=== PATIENT | male | born 1950 | race Caucasian/White ===

== ENCOUNTER 2017-07-10 12:32 | Inpatient (IN) | payer MEDICARE, BC ==
[~2017-07-10] VITALS: Ht 170.2 cm; Wt 95.1 kg
[~2017-07-10 12:32] MED LIST: ALLO300T46; AMPH30CA7; DESV100T4; HYDR-3612; LORA1TAB; LOSA25TA2; OXYC-284; SIMV20TA2; ZALE10CA; ZALE5CAP
--- NOTE | 2017-07-10 12:58 | ERD ---
ER Documentation Chief Complaint Chief Complaint Possible sz HPI . This is a 67-year-old male, presenting to the ER because he was eating, appeared to be choking. His eyes rolled over for a few seconds, fell back will and hit her head on the floor. His immediately insert a spoon inside his mouth to prevent him from biting his tongue. He was incoherent for approximately 15 minutes. He never has similar symptoms previously, does not remember what happened. He denies syncope neck pain, chest pain, abdominal pain , vomiting, dysuria, diarrhea, urinary/stool incontinence. He was recently started on Lamictal and Adderall on June 24, 2017. He smokes and drinks Past medical history: History of throat cancer treated with radiation and chemotherapy 4 years ago, anxiety, hypertension, dyslipidemia, attention deficit disorder, chronic cough, hypothyroidism, depression, BPH ROS All systems reviewed and are negative except as per history of present illness. Medications Home Meds Reported Medications Lamotrigine* (Lamotrigine*) 25 Mg Tablet, 50 MG PO BID, TAB 07/10/17 Losartan Potassium* (Losartan Potassium*) 25 Mg Tablet, 25 MG PO DAILY, TAB 07/10/17 Levothyroxine Sodium* (Levothyroxine Sodium*) 112 Mcg Tablet, 112 MCG PO BEFORE BREAKFAST, #30 TAB 07/10/17 Omeprazole* (Omeprazole*) 40 Mg Capsule.dr, 40 MG PO AC BREAKFAST, #30 CAP 07/10/17 Lorazepam* (Ativan*) 2 Mg Tablet, 2 MG PO BID Y for ANXIETY, #30 TAB 07/10/17 Amphet Jxj-Fllzwq-B-Amphet (Adderall) 30 Mg Tablet, 30 MG PO DAILY, TAB 07/10/17 Desvenlafaxine Succinate (Pristiq) 100 Mg Tab.sr.24h, 100 MG PO DAILY, TAB.SA 07/10/17 Simvastatin* (Zocor*) 20 Mg Tablet, 20 MG PO QHS, #30 TAB 07/10/17 Tamsulosin Hcl* (Tamsulosin Hcl*) 0.4 Mg Cap.er.24h, 0.4 MG PO HS, CAP 07/10/17 Diclofenac Sodium* (Diclofenac Sodium*) 75 Mg Tablet.dr, 75 MG PO DAILY, #60 TAB 07/10/17 Cevimeline Hcl* (Evoxac*) 30 Mg Cap, 30 MG PO TID, CAP 07/10/17 Loratadine* (Claritin*) 10 Mg Capsule, 10 MG PO DAILY, CAP 07/10/17 Discontinued Reported Medications Zaleplon (Sonata) 5 Mg Capsule, 10 09/26/13 Lorazepam* (Lorazepam*) 1 Mg Tablet 09/26/13 Hydrocodone Bit-Acetaminophen* ([place]*) 1 Tab Tab 09/26/13 Oxycodone Hcl-Acetaminophen* (Percocet*) 1 Tab Tablet 09/26/13 Losartan Potassium* (Cozaar*) 25 Mg Tablet 09/26/13 Allopurinol* (Zyloprim*) 300 Mg Tablet 09/26/13 Zaleplon (Zaleplon) 10 Mg Capsule 09/26/13 Simvastatin (Simvastatin) 20 Mg Tablet 09/26/13 Desvenlafaxine Succinate (Pristiq) 100 Mg Tab.sr.24h 09/26/13 Amphet Jgn-Hhgiie-X-Amphet (Adderall XR) 30 Mg Cap.sr.24h 09/26/13 Allergies Allergies: Coded Allergies: No Known Allergy (Unverified , 07/10/17) PMhx/Soc History of Surgery: No Anesthesia Reaction: No Hx Neurological Disorder: No Hx Respiratory Disorders: No Hx Cardiac Disorders: No Hx Psychiatric Problems: No Hx Miscellaneous Medical Probl: No Hx Alcohol Use: No Hx Substance Use: No Hx Tobacco Use: No Physical Exam Vitals Vital Signs Date Time Temp Pulse Resp B/P Pulse Ox O2 Delivery O2 Flow Rate FiO2 07/10/17 12:39 98.3 112 18 123/75 98 Physical Exam Const: No acute distress. Head: Atraumatic. Eyes: Normal Conjunctiva. ENT: Normal External Ears, Nose and Mouth. Neck: Full range of motion. No meningismus. Resp: Clear to auscultation bilaterally. Cardio: Regular rate and rhythm. Abd: Soft, non distended, normal bowel sounds, non tender. Skin: No petechiae or rashes. Back: No midline or flank tenderness. Ext: No cyanosis, or edema. Neur: Awake and alert. No focal deficit Psych: Normal Mood and Affect. Result Diagram: 07/10/17 1315 07/10/17 1315 Results 24 hrs Laboratory Tests Test 07/10/17 13:15 07/10/17 13:40 White Blood Count 8.410^3/ul Red Blood Count 3.5710^6/ul Hemoglobin 12.2g/dl Hematocrit 34.4% Mean Corpuscular Volume 96.4fl Mean Corpuscular Hemoglobin 34.2pg Mean Corpuscular Hemoglobin Concent 35.5g/dl Red Cell Distribution Width 13.2% Platelet Count 98868^3/UL Mean Platelet Volume 8.8fl Neutrophils % 85.1% Lymphocytes % 4.4% Monocytes % 8.2% Eosinophils % 0.7% Basophils % 0.5% Nucleated Red Blood Cells % 0.0/100WBC Neutrophils # 7.110^3/ul Lymphocytes # 0.410^3/ul Monocytes # 0.710^3/ul Eosinophils # 0.110^3/ul Basophils # 0.010^3/ul Nucleated Red Blood Cells # 0.010^3/ul Prothrombin Time 12.5Sec Prothrombin Time Ratio 1.0 INR International Normalized Ratio 0.93 Activated Partial Thromboplast Time 28.4Sec Sodium Level 131mmol/L Potassium Level 4.2mmol/L Chloride Level 91mmol/L Carbon Dioxide Level 28mmol/L Anion Gap 16 Blood Urea Nitrogen 13mg/dl Creatinine 1.37mg/dl Glucose Level 113mg/dl Calcium Level 9.3mg/dl Total Bilirubin 0.2mg/dl Direct Bilirubin 0.00mg/dl Indirect Bilirubin 0.2mg/dl Aspartate Amino Transf (AST/SGOT) 29IU/L Alanine Aminotransferase (ALT/SGPT) 35IU/L Alkaline Phosphatase 77IU/L Total Protein 7.2g/dl Albumin 4.1g/dl Globulin 3.10g/dl Albumin/Globulin Ratio 1.32 Urine Opiates Screen Negative Urine Barbiturates Negative Urine Amphetamines Screen Positive Urine Benzodiazepines Screen Negative Urine Cocaine Screen Negative Urine Cannabinoids Negative Ethyl Alcohol Level 11.0mg/dl Bedside Glucose 111mg/dL Current Medications Medications (Trade) Dose Ordered Sig/Saul Route PRN Reason Start Time Stop Time Status Last Admin Dose Admin Levetiracetam (Keppra 500 Mg/ 100ml (Pmx)) 100 ml @ 400 mls/hr ONCE ONCE IVPB 07/10/17 15:00 07/10/17 15:14 DC 07/10/17 15:26 Procedures/MDM [place] [id number] Radiology Main Line: [phone] DIAGNOSTIC IMAGING REPORT Patient: DUSTIN JIMÉNEZ : 1950 Age: 67 Sex: M MR #: [id number] DOS: 07/10/17 1309 Ordering MD: ERASMO SARABIA MD Location: E/R Room/Bed: PROCEDURE: XR Chest. CLINICAL INDICATION: Altered mental status TECHNIQUE: Single AP view of the chest was obtained COMPARISON: None FINDINGS: Heart is borderline enlarged. Aortic arch calcification. Vascular prominence noted. Patchy opacities in the left mid lung. Mild blunting of the costophrenic angles. No acute osseous abnormality. RPTAT: AA IMPRESSION: Mild cardiomegaly. Possible trace effusions. Patchy opacities in the left mid lung may reflect atelectasis or pneumonia. Physician Bipin Date Time Electronically viewed and signed by Kuldip Ontiveros Physician on 07/10/2017 14 :56 ME/ CC: ERASMO SARABIA MD [place] [id number] Radiology Main Line: [phone] DIAGNOSTIC IMAGING REPORT Patient: DUSTIN JIMÉNEZ : 1950 Age: 67 Sex: M MR #: [id number] DOS: 07/10/17 1309 Ordering MD: ERASMO SARABIA MD Location: E/R Room/Bed: PROCEDURE: CT Brain without contrast. CLINICAL INDICATION: Seizure TECHNIQUE: A CT of the brain was performed on a multidetector CT scanner utilizing axial sections from the skull base through the vertex without contrast. Images were reviewed on a high-resolution PACS workstation. Exam CTDI = 44.63 mGy and the DLP = 720.23 mGy-cm. DICOM images are available. One or more of the following dose reduction techniques were used: Automated exposure control Adjustment of the mA and/or kV according to patient size. Use of iterative reconstruction technique. COMPARISON: CT head 09/26/2013 FINDINGS: Mild diffuse cerebral and cerebellar atrophy is present. There is proportionate dilatation of the ventricular system and sulci in a symmetric fashion. There is prominence of the extraaxial spaces secondary to atrophy. There is no evidence of intracranial hemorrhage, mass effect or midline shift. No abnormal intra-axial or extra-axial fluid collections are seen. The density of the brain is normal and the quintero/white matter differentiation is well preserved. Mild patchy diffuse deep white matter microangiopathic ischemic change is seen. The osseous structures are unremarkable. Paranasal sinuses are clear. Vascular calcifications are identified. IMPRESSION: 1. No intracranial hemorrhage, mass effect or midline shift. 2. Mild generalized atrophy. Mild microangiopathic ischemic change. 3. Intracranial atherosclerosis. RPTAT: HHO .Ace White MD, MD Date Time Electronically viewed and signed by .Ace White MD, on 07/10/2017 14:58 .O/ CC: ERASMO SARABIA MD MEDICAL MAKING DECISION: The patient is a 67-year-old male, presenting with acute onset seizure, questionable syncope. He was treated empirically with Keppra 500 mg IV to prevent recurrent seizure. The differential diagnoses considered include but are not limited to bradyarrhythmia, tachyarrhythmias, aortic outflow obstruction, neurogenic including subarachnoid hemorrhage, orthostatic hypotension and all of its causes , hypoglycemia, dysautonomia, medications. Departure Diagnosis: Primary Impression: New onset seizure Additional Impressions: Renal insufficiency Anemia Condition: Stable Comments I discussed the findings with the patient. I discussed the patient with the on- call hospitalist Dr. Sanchez at 3:20 PM who was made aware of the lab, the treatment , the patient condition. The patient is admitted to laboratory for 24 hour observation Disclaimer: Inadvertent spelling and grammatical errors are likely due to EHR/ dictation software use and do not reflect on the overall quality of patient care. Also, please note that the electronic time recorded on this note does not necessarily reflect the actual time of the patient encounter. ERASMO SARABIA MD Jul 10, 2017 12:58
[2017-07-10 13:42] LABS: ABNORMAL IP MESSAGE 1; BASOPHILS % 0.5 % (0.0-2.0); EOSINOPHILS # 0.1 10^3/ul (0.0-0.5); EOSINOPHILS % 0.7 % (0.0-7.0); HEMATOCRIT 34.4 % (42.0-52.0); HEMOGLOBIN 12.2 g/dl (14.0-18.0); LYMPHOCYTES # 0.4 10^3/ul (0.8-2.9); LYMPHOCYTES % 4.4 % (15.0-51.0); MEAN CORPUSCULAR HEMOGLOBIN 34.2 pg (29.0-33.0); MEAN CORPUSCULAR HGB CONC 35.5 g/dl (32.0-37.0); MEAN CORPUSCULAR VOLUME 96.4 fl (82.0-101.0); MEAN PLATELET VOLUME 8.8 fl (7.4-10.4); MONOCYTE # 0.7 10^3/ul (0.3-0.9); MONOCYTES % 8.2 % (0.0-11.0); NEUTROPHIL # 7.1 10^3/ul (1.6-7.5); NEUTROPHILS % 85.1 % (39.0-77.0); PLATELET COUNT 210 10^3/UL (140-415); POSITIVE DIFF @See below; RED BLOOD COUNT 3.57 10^6/ul (4.70-6.10); RED CELL DISTRIBUTION WIDTH 13.2 % (11.5-14.5); WHITE BLOOD COUNT 8.4 10^3/ul (4.8-10.8)
[2017-07-10 14:03] LABS: ALBUMIN 4.1 g/dl (3.3-4.9); ALBUMIN/GLOBULIN RATIO 1.32; BILIRUBIN,INDIRECT 0.2 mg/dl (0-1.1); BILIRUBIN,TOTAL 0.2 mg/dl (0.2-1.3); CALCIUM 9.3 mg/dl (8.4-10.2); CREATININE 1.37 mg/dl (0.61-1.24); POTASSIUM 4.2 mmol/L (3.5-5.1); TOTAL PROTEIN 7.2 g/dl (6.1-8.1)
[2017-07-10 14:04] LABS: INR 0.93; PROTIME 12.5 Sec (12.2-14.2)
[2017-07-10 14:05] LABS: PARTIAL THROMBOPLASTIN TIME 28.4 Sec (25.0-35.0)
[2017-07-10 14:08] LABS: BARBITURATES Negative (NEGATIVE); BENZODIAZEPINES Negative (NEGATIVE); CANNABINOIDS Negative (NEGATIVE)
[2017-07-10 14:09] LABS: COCAINE Negative (NEGATIVE)
[2017-07-10 14:21] LABS: OPIATES Negative (NEGATIVE)
--- NOTE | 2017-07-10 14:56 | RADRPT ---
PROCEDURE: XR Chest. CLINICAL INDICATION: Altered mental status TECHNIQUE: Single AP view of the chest was obtained COMPARISON: None FINDINGS: Heart is borderline enlarged. Aortic arch calcification. Vascular prominence noted. Patchy opacities in the left mid lung. Mild blunting of the costophrenic angles. No acute osseous abnormality. RPTAT: AA IMPRESSION: Mild cardiomegaly. Possible trace effusions. Patchy opacities in the left mid lung may reflect atelectasis or pneumonia. Kuldip Ontiveros Physician Date Time Electronically viewed and signed by Kuldip Ontiveros Physician on 07/10/2017 14:56 [place]/
--- NOTE | 2017-07-10 14:59 | RADRPT ---
PROCEDURE: CT Brain without contrast. CLINICAL INDICATION: Seizure TECHNIQUE: A CT of the brain was performed on a multidetector CT scanner utilizing axial sections from the skull base through the vertex without contrast. Images were reviewed on a high-resolution Sistemic workstation. Exam CTDI = 44.63 mGy and the DLP = 720.23 mGy-cm. DICOM images are available. One or more of the following dose reduction techniques were used: Automated exposure control Adjustment of the mA and/or kV according to patient size. Use of iterative reconstruction technique. COMPARISON: CT head 09/26/2013 FINDINGS: Mild diffuse cerebral and cerebellar atrophy is present. There is proportionate dilatation of the v entricular system and sulci in a symmetric fashion. There is prominence of the extraaxial spaces sec ondary to atrophy. There is no evidence of intracranial hemorrhage, mass effect or midline shift. N o abnormal intra-axial or extra-axial fluid collections are seen. The density of the brain is denis l and the quintero/white matter differentiation is well preserved. Mild patchy diffuse deep white matte r microangiopathic ischemic change is seen. The osseous structures are unremarkable. Paranasal s inuses are clear. Vascular calcifications are identified. IMPRESSION: 1. No intracranial hemorrhage, mass effect or midline shift. 2. Mild generalized atrophy. Mild microangiopathic ischemic change. 3. Intracranial atherosclerosis. RPTAT: HHO .Ace White MD, MD Date Time Electronically viewed and signed by .Ace White MD, on 07/10/2017 14:58 .O/
[2017-07-10] MEDS ORDERED: LEVETIRACETAM 500 MG (PMX) 100 ML IVPB ONE (15:00)
[2017-07-10 15:30] VITALS: TEMP 98.3
[2017-07-10] MEDS ORDERED: LORA10CA PO (15:33)
[2017-07-10] MEDS ORDERED: CEVI30CA8 PO (15:33)
[2017-07-10] MEDS ORDERED: TAMS0.4C2 PO (15:34)
[2017-07-10] MEDS ORDERED: DICL75TA2 PO (15:34)
[2017-07-10] MEDS ORDERED: SIMV20TA PO (15:34)
[2017-07-10] MEDS ORDERED: DESV100T4 PO (15:35)
[2017-07-10] MEDS ORDERED: ADDE30 PO (15:35)
[2017-07-10] MEDS ORDERED: LORA-444 PO (15:36)
[2017-07-10] MEDS ORDERED: LEVO112T57 PO (15:37)
[2017-07-10] MEDS ORDERED: OMEP40CA6 PO (15:37)
[2017-07-10] MEDS ORDERED: LOSA25TA5 PO (15:38)
[2017-07-10] MEDS ORDERED: LAMO25TA PO (15:39)
[2017-07-10 16:10] VITALS: BP 130/80; PULSE 107; RESP 18; Ht 170.2 cm; Wt 95.1 kg
[2017-07-10 16:25] VITALS: PULSE 107
[2017-07-10] MEDS ORDERED: LORAZEPAM 0.5 MG TAB PO PRN ×2 (17:00→18:00)
[2017-07-10] MEDS ORDERED: morphine 2 MG INJ IV PRN (17:00)
[2017-07-10] MEDS ORDERED: NACL 0.9% 3 ML SYG IV SCH (17:00)
[2017-07-10] MEDS ORDERED: ONDANSETRON 4 MG INJ IV PRN (17:00)
[2017-07-10] MEDS ORDERED: BISACODYL (EC) 5 MG TAB PO PRN (17:00)
[2017-07-10] MEDS ORDERED: ACETAMINOPHEN 325 MG TAB PO PRN (17:00)
[2017-07-10] MEDS ORDERED: HYDROCODONE/APAP (5/325) TAB PO PRN (17:00)
--- NOTE | 2017-07-10 17:16 | HP ---
Date/Time of Note Date/Time of Note DATE: 07/10/17 TIME: 17:10 Assessment/Plan VTE Prophylaxis VTE Prophylaxis Intervention: SCD's Lines/Catheters IV [facility] [place] [facility] Assessment/Plan Chief Complaint/Hosp Course o: Physical exam General: Patient is laying in bed and answers questions appropriately Mentation: Patient is alert and oriented 4, Head: Normocephalic atraumatic Eyes: EOMI, pupils reactive to light Neck: Supple, nontender, midline Respiratory: Clear to auscultation bilaterally Cardiovascular: regular rate, no obvious murmurs Gastrointestinal: non-tender to palpation, bowel sounds heard. Neurological: Moves all extremities spontaneously Skin: No new skin lesions Patient is a 67-year-old male with past medical history of hypertension dyslipidemia and throat carcinoma in remission who presents to [facility] for episode of syncope versus questionable seizure Assessment and plan Syncopal episode -Questionable seizure versus cough induced vasovagal event -Patient on lamotrigine, patient states that his psychiatrist put him on for mood disorder which is possible -Questionable seizure due to patient's daily 1 bottle of wine drinking habit, as needed Ativan as needed, seizure precautions -EEG, echocardiogram, MRI ordered neurology consultation pending -CT noted Acute kidney injury versus CKD -Very mild, still within safe ranges -Hydrate and recheck in the morning Anemia -Mild, monitor Electrolyte abnormality -Very mild, monitor Hypertension -Continue home meds Dyslipidemia -Continue meds Problems: HPI/ROS Admit Date/Time Admit Date/Time Jul 10, 2017 at 15:24 Hx of Present Illness Patient is a 67-year-old male with a past medical history significant for throat cancer in remission, hypertension, dysrhythmia, allergies, attention deficit disorder who presents to [facility] for questionable seizure or syncopal event. Patient was eating breakfast with his who witnessed the entire event. Per patient's patient was coughing violently and then his eyes rolled back and that he had a syncopal episode to the floor, the patient was aroused by his and did not seem to have a significant postictal period. Patient states that he has no history of epilepsy and follows up with his regular doctor on a normal basis. Currently patient has no acute complaints and denies chest pain, nausea, vomiting, dizziness, weakness. PMH: Throat carcinoma in remission, hypertension, dyslipidemia, allergies, depression, ADHD, GERD, Social: Daily alcohol drinker, denies smoking Meds: Please see med rec PMH/Family/Social Social History Smoking Status: Never smoker Exam/Review of Systems Vital Signs Vitals Vital Signs Date Time Temp Pulse Resp B/P Pulse Ox O2 Delivery O2 Flow Rate FiO2 07/10/17 16:25 107 07/10/17 15:30 98.3 20 130/88 98 Room Air Labs Result Diagram: 07/10/17 1315 07/10/17 1315 Medications Medications Current Medications Sodium Chloride (1/2 NS) 1,000 ml @ 70 mls/hr [id number] IV ; Start 07/10/17 at 17:00 Ondansetron HCl (Zofran Inj) 4 mg Q6H PRN IV NAUSEA AND/OR VOMITING; Start at 17:00 Acetaminophen (Tylenol Tab) 650 mg Q6H PRN PO PAIN LEVEL 1-3 OR FEVER; Start 07/10/17 at 17:00 Acetaminophen/ Hydrocodone Bitart ([place] (5/325)) 1 tab Q6H PRN PO PAIN LEVEL 4 -6; Start 07/10/17 at 17:00 Morphine Sulfate (morphine) 2 mg Q4H PRN IV PAIN LEVEL 7-10; Start 07/10/17 at 17:00 Bisacodyl (Dulcolax) 5 mg DAILY PRN PO CONSTIPATION; Start 07/10/17 at 17:00 Cevimeline HCl (Evoxac) 30 mg TID PO ; Start 07/10/17 at 21:00; Status UNV Loratadine (Claritin) 10 mg DAILY PO ; Start 07/10/17 at 17:00 Losartan Potassium (Cozaar) 25 mg DAILY PO ; Start 07/11/17 at 09:00 Tamsulosin HCl (Flomax) 0.4 mg HS PO ; Start 07/10/17 at 21:00 Lamotrigine (Lamictal) 50 mg BID PO ; Start 07/10/17 at 21:00; Status UNV Lorazepam (Ativan) 1 mg Q6 PRN PO ANXIETY; Start 07/10/17 at 18:00; Status UNV HERBERT PALM Jul 10, 2017 17:16
[2017-07-10] MEDS: SOD CHLORIDE 0.45% 1,000 ML IV SCH (17:26)
[2017-07-10] MEDS: LORATADINE 10 MG TAB PO SCH (17:26)
[2017-07-10] MEDS ORDERED: LORAZEPAM 2 MG INJ IV PRN (17:30)
[2017-07-10] MEDS ORDERED: LABETALOL HCL 20MG INJ IV PRN (17:30)
[2017-07-10 20:00] VITALS: BP 143/66; RESP 21
[2017-07-10 20:05] VITALS: PULSE 101
[2017-07-10] MEDS ORDERED: CEVIMELINE 30 MG CAP PO SCH (21:00)
[2017-07-10] MEDS: LAMOTRIGINE 25 MG TAB PO SCH (22:25)
[2017-07-10] MEDS: TAMSULOSIN (SR) 0.4 MG CAP PO SCH (22:25)
[2017-07-11] VITALS (12 sets, daily range): BP systolic 109–129; BP diastolic 64–84; PULSE 86–100; RESP 19–21
[2017-07-11 06:23] LABS: ABNORMAL IP MESSAGE 1; BASOPHIL # 0.1 10^3/ul (0.0-0.1); EOSINOPHILS # 0.1 10^3/ul (0.0-0.5); HEMATOCRIT 33.3 % (42.0-52.0); HEMOGLOBIN 11.5 g/dl (14.0-18.0); LYMPHOCYTES # 0.5 10^3/ul (0.8-2.9); LYMPHOCYTES % 10.9 % (15.0-51.0); MEAN CORPUSCULAR HEMOGLOBIN 33.5 pg (29.0-33.0); MEAN CORPUSCULAR HGB CONC 34.5 g/dl (32.0-37.0); MEAN CORPUSCULAR VOLUME 97.1 fl (82.0-101.0); MEAN PLATELET VOLUME 9.2 fl (7.4-10.4); MONOCYTE # 0.6 10^3/ul (0.3-0.9); MONOCYTES % 12.7 % (0.0-11.0); NEUTROPHIL # 3.5 10^3/ul (1.6-7.5); NEUTROPHILS % 71.8 % (39.0-77.0); PLATELET COUNT 227 10^3/UL (140-415); POSITIVE DIFF @See below; RED BLOOD COUNT 3.43 10^6/ul (4.70-6.10); RED CELL DISTRIBUTION WIDTH 13.2 % (11.5-14.5); WHITE BLOOD COUNT 4.9 10^3/ul (4.8-10.8)
[2017-07-11 07:04] LABS: ALBUMIN 3.6 g/dl (3.3-4.9); ALBUMIN/GLOBULIN RATIO 1.16; BILIRUBIN,INDIRECT 0.4 mg/dl (0-1.1); BILIRUBIN,TOTAL 0.4 mg/dl (0.2-1.3); CALCIUM 9.7 mg/dl (8.4-10.2); CHOL/HDL RATIO 1.9 RATIO; CREATININE 1.42 mg/dl (0.61-1.24); MAGNESIUM 1.8 mg/dl (1.7-2.5); POTASSIUM 4.4 mmol/L (3.5-5.1); TOTAL PROTEIN 6.7 g/dl (6.1-8.1)
[2017-07-11] MEDS: SOD CHLORIDE 0.45% 1,000 ML IV SCH ×2 (07:04→21:07)
[2017-07-11] MEDS: LEVOTHYROXINE 112 MCG TAB PO SCH (07:04)
[2017-07-11 07:33] LABS: THYROID STIMULATING HORMONE 8.45 MIU/L (0.465-4.680)
--- NOTE | 2017-07-11 09:09 | RADRPT ---
PROCEDURE: MR Brain without contrast. CLINICAL INDICATION: See a this morning. TECHNIQUE: An MRI of the brain was performed on a 1.5 tadeo scanner utilizing the following sequen jamila: Sagittal T1 weighted, axial T2 weighted, axial FLAIR, coronal GRE, and axial diffusion weighted with ADC mapping. COMPARISON: CT brain 07/10/2017 and 09/26/2013 FINDINGS: No evidence of restricted diffusion to suggest acute or early subacute ischemic infarction. There i s no evidence of intracranial hemorrhage, mass effect, or midline shift. No extra-axial fluid collec tions are seen. No hypointense signal abnormalities are seen on the GRE images to suggest the presence of blood degr adation products. Mesial temporal lobes and the temporal formations are grossly symmetric and normal appearance. No evidence of cortical dysplasia or gliosis. Scattered nonspecific FLAIR/T2 signal hyp erintensity foci in the subcortical and periventricular white matter compatible with sequelae of mil d to moderate chronic microvascular ischemic disease. There is preservation of quintero white differentiation. No structural abnormality. Mild to moderate pr ominence of the ventricles and subarachnoid spaces compatible with generalized cerebral volume loss. The posterior fossa contents, brainstem, seventh - eighth cranial nerve complexes, pituitary axis, o rbits, paranasal sinuses, and mastoid air cells are unremarkable. Normal flow voids are visible in the proximal intracranial arteries and dural sinuses, indicating pa tency. IMPRESSION: 1. No acute or early subacute ischemic infarction or intracranial hemorrhage. 2. Moderate chronic microvascular ischemic disease and generalized cerebral volume loss. 3. No structural abnormality or temporal lobe asymmetry. RPTAT:AAJJ Physician Arlette Date Time Electronically viewed and signed by Physician Arlette on 07/11/2017 09:09 [place]/
[2017-07-11] MEDS: LAMOTRIGINE 25 MG TAB PO SCH ×2 (09:15→21:07)
[2017-07-11] MEDS: LORATADINE 10 MG TAB PO SCH (09:15)
[2017-07-11] MEDS: LOSARTAN 25 MG TAB PO SCH (09:16)
--- NOTE | 2017-07-11 11:29 | PN ---
Date/Time of Note Date/Time of Note DATE: 07/11/17 TIME: Assessment/Plan VTE Prophylaxis VTE Prophylaxis Intervention: ambulation, SCD's Lines/Catheters IV Catheter Type (from Nrs): Peripheral IV Assessment/Plan Chief Complaint/Hosp Course s: 07.11 patient has dry mouth, could not bring home med as we do not have his medication for his salivary glands, no seizure/acute issues o: Physical exam General: Patient is laying in bed and answers questions appropriately Mentation: Patient is alert and oriented 4, Head: Normocephalic atraumatic Eyes: EOMI, pupils reactive to light Neck: Supple, nontender, midline Respiratory: Clear to auscultation bilaterally Cardiovascular: regular rate, no obvious murmurs Gastrointestinal: non-tender to palpation, bowel sounds heard. Neurological: Moves all extremities spontaneously Skin: No new skin lesions Patient is a 67-year-old male with past medical history of hypertension dyslipidemia and throat carcinoma in remission who presents to [facility] for episode of syncope versus questionable seizure Assessment and plan Syncopal episode -Questionable seizure versus cough induced vasovagal event -Patient on lamotrigine, patient states that his psychiatrist put him on for mood disorder which is possible -Questionable seizure due to patient's daily 1 bottle of wine drinking habit, as needed Ativan as needed, seizure precautions -EEG, echocardiogram, neurology consultation pending, Dr. Randle -MRI noted, no acute issues -CT noted, no acute issues Acute kidney injury versus CKD -Very mild, still within safe ranges -worsened slightly since yesterday -US renal ordered as well as urine studies -Hydrate and recheck in the morning Anemia -Mild, monitor Electrolyte abnormality -Very mild, monitor Hypertension -Continue home meds Dyslipidemia -Continue meds DISPO -if Cr stable tomorrow, patient likely has a minor element of CKD and can follow up with his PCP -pending neurology recs Problems: Exam/Review of Systems Vital Signs Vitals Vital Signs Date Time Temp Pulse Resp B/P Pulse Ox O2 Delivery O2 Flow Rate FiO2 07/11/17 08:10 98.5 85 20 124/76 95 07/10/17 16:10 Room Air Intake and Output 07/10/17 07/10/17 07/11/17 14:59 22:59 06:59 Intake Total 500 ml 1390 ml Balance 500 ml 1390 ml Results Result Diagram: 07/11/17 0529 07/11/17 0529 Results 24 hrs Laboratory Tests Test 07/10/17 13:15 07/10/17 13:40 07/10/17 17:40 07/11/17 05:29 White Blood Count 8.4 4.9 # Red Blood Count 3.57 L 3.43 L Hemoglobin 12.2 L 11.5 L Hematocrit 34.4 L 33.3 L Mean Corpuscular Volume 96.4 97.1 Mean Corpuscular Hemoglobin 34.2 H 33.5 H Mean Corpuscular Hemoglobin Concent 35.5 34.5 Red Cell Distribution Width 13.2 13.2 Platelet Count 210 227 Mean Platelet Volume 8.8 9.2 Neutrophils % 85.1 H 71.8 Lymphocytes % 4.4 L 10.9 L Monocytes % 8.2 12.7 H Eosinophils % 0.7 2.0 Basophils % 0.5 1.0 Nucleated Red Blood Cells % 0.0 0.0 Neutrophils # 7.1 3.5 Lymphocytes # 0.4 L 0.5 L Monocytes # 0.7 0.6 Eosinophils # 0.1 0.1 Basophils # 0.0 0.1 Nucleated Red Blood Cells # 0.0 0.0 Prothrombin Time 12.5 Prothrombin Time Ratio 1.0 INR International Normalized Ratio 0.93 Activated Partial Thromboplast Time 28.4 Sodium Level 131 L 138 Potassium Level 4.2 4.4 Chloride Level 91 L 96 L Carbon Dioxide Level 28 33 H Anion Gap 16 13 Blood Urea Nitrogen 13 14 Creatinine 1.37 H 1.42 H Glucose Level 113 96 Calcium Level 9.3 9.7 Total Bilirubin 0.2 0.4 Direct Bilirubin 0.00 0.00 Indirect Bilirubin 0.2 0.4 Aspartate Amino Transf (AST/SGOT) 29 28 Alanine Aminotransferase (ALT/SGPT) 35 37 Alkaline Phosphatase 77 73 Total Protein 7.2 6.7 Albumin 4.1 3.6 Globulin 3.10 3.10 Albumin/Globulin Ratio 1.32 1.16 Urine Opiates Screen Negative Urine Barbiturates Negative Urine Amphetamines Screen Positive Urine Benzodiazepines Screen Negative Urine Cocaine Screen Negative Urine Cannabinoids Negative Ethyl Alcohol Level 11.0 Bedside Glucose 111 Creatine Kinase 103 Magnesium Level 1.8 Triglycerides Level 58 Cholesterol Level 149 LDL Cholesterol, Calculated 62 HDL Cholesterol 75 Cholesterol/HDL Ratio 1.9 Thyroid Stimulating Hormone (TSH) 8.450 H Free Thyroxine 1.19 Medications Medications Current Medications Sodium Chloride (1/2 NS) 1,000 ml @ 70 mls/hr [id number] IV Last administered on 07/10/17 17:26; Admin Dose 70 MLS/HR; Start 07/10/17 at 17:00 Ondansetron HCl (Zofran Inj) 4 mg Q6H PRN IV NAUSEA AND/OR VOMITING; Start at 17:00 Acetaminophen (Tylenol Tab) 650 mg Q6H PRN PO PAIN LEVEL 1-3 OR FEVER; Start 07/10/17 at 17:00 Acetaminophen/ Hydrocodone Bitart ([place] (5/325)) 1 tab Q6H PRN PO PAIN LEVEL 4 -6; Start 07/10/17 at 17:00 Morphine Sulfate (morphine) 2 mg Q4H PRN IV PAIN LEVEL 7-10; Start 07/10/17 at 17:00 Bisacodyl (Dulcolax) 5 mg DAILY PRN PO CONSTIPATION; Start 07/10/17 at 17:00 Cevimeline HCl (Evoxac) 30 mg TID PO ; Start 07/10/17 at 21:00; Status UNV Loratadine (Claritin) 10 mg DAILY PO Last administered on 07/11/17 09:15; Admin Dose 10 MG; Start 07/10/17 at 17:00 Losartan Potassium (Cozaar) 25 mg DAILY PO Last administered on 07/11/17 09: 16; Admin Dose 25 MG; Start 07/11/17 at 09:00 Tamsulosin HCl (Flomax) 0.4 mg HS PO Last administered on 07/10/17 22:25; Admin Dose 0.4 MG; Start 07/10/17 at 21:00 Lamotrigine (Lamictal) 50 mg BID PO Last administered on 07/11/17 09:15; Admin Dose 50 MG; Start 07/10/17 at 21:00 Lorazepam (Ativan) 1 mg Q6H PRN PO ANXIETY Last administered on 07/10/17 22: 29; Admin Dose 1 MG; Start 07/10/17 at 18:00 Lorazepam (Ativan) 2 mg Q10MIN PRN IV seizure; Start 07/10/17 at 17:30 Labetalol HCl (Labetalol) 10 mg Q4 PRN IV sbp >160; Start 07/10/17 at 17:30 HERBERT PALM Jul 11, 2017 11:29
--- NOTE | 2017-07-11 11:31 | RADRPT ---
PROCEDURE: XR Chest PA and Lateral CLINICAL INDICATION: Pneumonia TECHNIQUE: PA and Lateral views of the chest were obtained. COMPARISON: 07/10/2017 FINDINGS: Cardiovascular: The cardiovascular silhouette appears unremarkable except for atherosclerotic change involving the aorta. Lung Levin: A poor inspiratory effort compresses lung parenchyma and discoid atelectasis has develo ped within the left lower lung zone and at the right costophrenic angle. No alveolar infiltrate is e vident. Pleural Spaces: No pneumothorax is identified and no effusion is evident. Osseous Structures: Moderate diffuse anterior spurring is seen to the thoracic spine. Soft Tissues: The soft tissues appear unremarkable. IMPRESSION: 1. Atherosclerotic aorta 2. Suboptimal inspiration compresses lung parenchyma with discoid atelectasis seen at the left lowe r lung zone and the right costophrenic angle region. 3. Degenerative spine changes. Physician Sana Date Time Electronically viewed and signed by Physician Sana on 07/11/2017 11:31 /
--- NOTE | 2017-07-11 12:08 | RADRPT ---
PROCEDURE: Renal US. CLINICAL INDICATION: Acute kidney injury. TECHNIQUE: Multiple sonographic images of the kidneys and urinary bladder were obtained. The imag es were reviewed on a PACS workstation. COMPARISON: No prior studies are available for comparison. FINDINGS: The right kidney measures 10.0 x 5.5 x 5.8 cm. The left kidney measures 8.6 x 4.2 x 4.1 cm. There is no renal mass. There is no hydronephrosis. There is no renal calculus. Renal parenchymal thickness is normal bilaterally. Echogenicity is normal bilaterally. The perirenal regions are normal with no fluid collection or mass. The urinary bladder is unremarkable. IMPRESSION: 1. Unremarkable renal ultrasound. RPTAT: QQ .Fabian Shipman MD, Date Time Electronically viewed and signed by .Fabian Shipman MD, on 07/11/2017 12:07 .R/
--- NOTE | 2017-07-11 14:34 | CONS ---
Date/Time of Note Date/Time of Note DATE: 07/11/17 TIME: 14:27 Assessment/Plan Assessment/Plan Chief Complaint/Hosp Course Seizure versus syncope Problems: Additional Assessment/Plan Patient is a 67-year-old male with a past medical history significant for throat cancer in remission, hypertension, dysrhythmia, allergies, attention deficit disorder who was brought into [facility] for an episode of possible syncope or seizure.. Patient was eating breakfast with his who witnessed the entire event. He apparently had food stuck to his throat and was coughing violently and his noticed that his eyes rolled back and then he fell on the floor. There is no generalized tonic-clonic seizure activity there is no history of tongue bite or incontinence. CT scan of the brain showed mild chronic white matter disease, nothing acute. MRI of the brain was also unremarkable. Examination is nonfocal. My impression is that he had a transient hypoperfusion event which precipitated possible seizure- like activity. Constant coughing could also cause is a vagal event. Plan 1 EEG 2 continue Lamictal which was prescribed to him by his psychiatrist 3 no other antiseizure medication is necessary at this time 4 will follow Consultation Date/Type/Reason Admit Date/Time Jul 10, 2017 at 15:24 Date of Consultation: Jul 11, 2017 Reason for Consultation Syncope versus seizure Referring Provider: HERBERT PALM Hx of Present Illness Patient is a 67-year-old male with a past medical history significant for throat cancer in remission, hypertension, dysrhythmia, allergies, attention deficit disorder who was brought into [facility] for an episode of possible syncope or seizure.. Patient was eating breakfast with his who witnessed the entire event. He apparently had food stuck to his throat and was coughing violently and his noticed that his eyes rolled back and then he fell on the floor. There is no generalized tonic-clonic seizure activity there is no history of tongue bite or incontinence. CT scan of the brain showed mild chronic white matter disease, nothing acute. MRI of the brain was also unremarkable. Constitutional: improved, no complaints Eyes: no complaints ENT: no complaints Respiratory: no complaints Cardiovascular: no complaints Gastrointestinal: no complaints Genitourinary: no complaints Musculoskeletal: no complaints Skin: no complaints Neurologic: no complaints Endocrine: no complaints Lymphatic: no complaints Psychological: nl mood/affect, no complaints Immunologic: no complaints Past Medical History Medical History: other (Throat cancer in remission) Social History Smoking Status: Former smoker Exam/Review of Systems Vital Signs Vitals Vital Signs Date Time Temp Pulse Resp B/P Pulse Ox O2 Delivery O2 Flow Rate FiO2 07/11/17 12:06 97.5 91 19 127/84 95 07/10/17 16:10 Room Air Intake and Output 07/10/17 07/10/17 07/11/17 15:00 23:00 07:00 Intake Total 500 ml 1390 ml Balance 500 ml 1390 ml Exam Constitutional: alert, oriented, well developed Psych: nl mood/affect, no complaints Head: atraumatic, normocephalic Eyes: EOMI, nl conjunctiva, nl lids, nl sclera ENMT: mucosa pink and moist, nl external ears & nose, nl lips & teeth, nl nasal mucosa & septum Neck: non-tender, supple Respiratory: clear to auscultation, normal air movement Cardiovascular: nl pulses, regular rate and rhythm Gastrointestinal: nl liver, spleen, non-tender, soft Extremities: normal pulses Neurological: 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, nl mental status, nl speech, nl strength, other (Alert, awake, oriented 3, cranial nerves are intact, nonfocal motor and sensory exam) Results Result Diagram: 07/11/1752807/11/17 05 Results 24 hrs Laboratory Tests Test 07/10/17 17:40 07/11/17 05:29 Creatine Kinase 103 White Blood Count 4.9 # Red Blood Count 3.43 L Hemoglobin 11.5 L Hematocrit 33.3 L Mean Corpuscular Volume 97.1 Mean Corpuscular Hemoglobin 33.5 H Mean Corpuscular Hemoglobin Concent 34.5 Red Cell Distribution Width 13.2 Platelet Count 227 Mean Platelet Volume 9.2 Neutrophils % 71.8 Lymphocytes % 10.9 L Monocytes % 12.7 H Eosinophils % 2.0 Basophils % 1.0 Nucleated Red Blood Cells % 0.0 Neutrophils # 3.5 Lymphocytes # 0.5 L Monocytes # 0.6 Eosinophils # 0.1 Basophils # 0.1 Nucleated Red Blood Cells # 0.0 Sodium Level 138 Potassium Level 4.4 Chloride Level 96 L Carbon Dioxide Level 33 H Anion Gap 13 Blood Urea Nitrogen 14 Creatinine 1.42 H Glucose Level 96 Calcium Level 9.7 Magnesium Level 1.8 Total Bilirubin 0.4 Direct Bilirubin 0.00 Indirect Bilirubin 0.4 Aspartate Amino Transf (AST/SGOT) 28 Alanine Aminotransferase (ALT/SGPT) 37 Alkaline Phosphatase 73 Total Protein 6.7 Albumin 3.6 Globulin 3.10 Albumin/Globulin Ratio 1.16 Triglycerides Level 58 Cholesterol Level 149 LDL Cholesterol, Calculated 62 HDL Cholesterol 75 Cholesterol/HDL Ratio 1.9 Thyroid Stimulating Hormone (TSH) 8.450 H Free Thyroxine 1.19 Imaging Free Text/Dictation IMPRESSION: 1. No intracranial hemorrhage, mass effect or midline shift. 2. Mild generalized atrophy. Mild microangiopathic ischemic change. 3. Intracranial atherosclerosis. RPTAT: HHO .Ace White MD, MD Date Time Electronically viewed and signed by .Ace White MD, MD on 07/10/2017 14:58 IMPRESSION: 1. No acute or early subacute ischemic infarction or intracranial hemorrhage. 2. Moderate chronic microvascular ischemic disease and generalized cerebral volume loss. 3. No structural abnormality or temporal lobe asymmetry. RPTAT:AAJJ Physician Arlette Date Time Electronically viewed and signed by Physician Arlette on 07/11/2017 09:09 Medications Medications Current Medications Sodium Chloride (1/2 NS) 1,000 ml @ 70 mls/hr [id number] IV Last administered on 07/10/17t 17:26; Admin Dose 70 MLS/HR; Start 07/10/17 at 17:00 Ondansetron HCl (Zofran Inj) 4 mg Q6H PRN IV NAUSEA AND/OR VOMITING; Start at 17:00 Acetaminophen (Tylenol Tab) 650 mg Q6H PRN PO PAIN LEVEL 1-3 OR FEVER; Start 07/10/17 at 17:00 Acetaminophen/ Hydrocodone Bitart ([place] (5/325)) 1 tab Q6H PRN PO PAIN LEVEL 4 -6; Start 07/10/17 at 17:00 Morphine Sulfate (morphine) 2 mg Q4H PRN IV PAIN LEVEL 7-10; Start 07/10/17 at 17:00 Bisacodyl (Dulcolax) 5 mg DAILY PRN PO CONSTIPATION; Start 07/10/17 at 17:00 Cevimeline HCl (Evoxac) 30 mg TID PO ; Start 07/10/17 at 21:00; Status UNV Loratadine (Claritin) 10 mg DAILY PO Last administered on 07/11/17 09:15; Admin Dose 10 MG; Start 07/10/17 at 17:00 Losartan Potassium (Cozaar) 25 mg DAILY PO Last administered on 07/11/17 09: 16; Admin Dose 25 MG; Start 07/11/17 at 09:00 Tamsulosin HCl (Flomax) 0.4 mg HS PO Last administered on 07/10/17 22:25; Admin Dose 0.4 MG; Start 07/10/17 at 21:00 Lamotrigine (Lamictal) 50 mg BID PO Last administered on 07/11/17 09:15; Admin Dose 50 MG; Start 07/10/17 at 21:00 Lorazepam (Ativan) 1 mg Q6H PRN PO ANXIETY Last administered on 07/10/17 22: 29; Admin Dose 1 MG; Start 07/10/17 at 18:00 Lorazepam (Ativan) 2 mg Q10MIN PRN IV seizure; Start 07/10/17 at 17:30 Labetalol HCl (Labetalol) 10 mg Q4 PRN IV sbp >160; Start 07/10/17 at 17:30 ROSEMARY STEWART MD Jul 11, 2017 14:34
[2017-07-11] MEDS: TAMSULOSIN (SR) 0.4 MG CAP PO SCH (21:07)
[2017-07-12] VITALS (8 sets, daily range): BP systolic 108–135; BP diastolic 66–88; PULSE 82–93; RESP 19–20
[2017-07-12] MEDS: LEVOTHYROXINE 112 MCG TAB PO SCH (07:11)
[2017-07-12 07:22] LABS: BASOPHIL # 0.1 10^3/ul (0.0-0.1); BASOPHILS % 1.4 % (0.0-2.0); EOSINOPHILS # 0.1 10^3/ul (0.0-0.5); EOSINOPHILS % 2.6 % (0.0-7.0); HEMATOCRIT 36.4 % (42.0-52.0); HEMOGLOBIN 12.7 g/dl (14.0-18.0); LYMPHOCYTES # 0.6 10^3/ul (0.8-2.9); LYMPHOCYTES % 15.1 % (15.0-51.0); MEAN CORPUSCULAR HGB CONC 34.9 g/dl (32.0-37.0); MEAN CORPUSCULAR VOLUME 97.3 fl (82.0-101.0); MONOCYTE # 0.7 10^3/ul (0.3-0.9); NEUTROPHIL # 2.5 10^3/ul (1.6-7.5); NEUTROPHILS % 59.8 % (39.0-77.0); PLATELET COUNT 270 10^3/UL (140-415); RED BLOOD COUNT 3.74 10^6/ul (4.70-6.10); RED CELL DISTRIBUTION WIDTH 13.2 % (11.5-14.5); WHITE BLOOD COUNT 4.2 10^3/ul (4.8-10.8)
[2017-07-12 07:52] LABS: CALCIUM 9.6 mg/dl (8.4-10.2); CREATININE 1.47 mg/dl (0.61-1.24); PHOSPHORUS 4.1 mg/dl (2.5-4.9); POTASSIUM 4.3 mmol/L (3.5-5.1)
[2017-07-12 07:58] LABS: POTASSIUM,URINE RANDOM 37.2 mmol/L (25-125)
[2017-07-12] MEDS: LORATADINE 10 MG TAB PO SCH (08:36)
[2017-07-12] MEDS: LOSARTAN 25 MG TAB PO SCH (08:37)
[2017-07-12] MEDS: LAMOTRIGINE 25 MG TAB PO SCH (08:38)
[2017-07-12] MEDS ORDERED: CEVIMELINE 30 MG CAP PO SCH (12:00)
--- NOTE | 2017-07-12 12:49 | CONS ---
Date/Time of Note Date/Time of Note DATE: 07/12/17 TIME: 12:47 Consult Date/Type/Reason Admit Date/Time Jul 11, 2017 at 11:07 Initial Consult Date 07/11/17 Type of Consultation: Neurology Reason for Consultation syncope Ordering Provider: HERBERT PALM Subjective improved no further episodes Objective Vital Signs Date Time Temp Pulse Resp B/P Pulse Ox O2 Delivery O2 Flow Rate FiO2 07/12/17 12:04 93 07/12/17 11:50 98.3 20 126/69 96 07/10/17 16:10 Room Air Intake and Output 07/11/17 07/11/17 07/12/17 15:00 23:00 07:00 Intake Total 1100 ml 550 ml Output Total 2100 ml 1650 ml Balance -1000 ml -1100 ml Exam Constitutional: alert, oriented, well developed Psych: nl mood/affect, no complaints Head: atraumatic, normocephalic Eyes: EOMI, nl conjunctiva, nl lids, nl sclera ENMT: mucosa pink and moist, nl external ears & nose, nl lips & teeth, nl nasal mucosa & septum Neck: non-tender, supple Respiratory: clear to auscultation, normal air movement Cardiovascular: nl pulses, regular rate and rhythm Gastrointestinal: nl liver, spleen, non-tender, soft Extremities: normal pulses Neurological: BUILDING PRINCIPAL II-XII intact, nl mental status, nl speech, nl strength, other (Alert, awake, oriented 3, cranial nerves are intact, nonfocal motor and sensory exam) Results/Medications Result Diagram: 07/12/1718 07/12/17 0618 Results 24 hrs Laboratory Tests Test 07/11/17 15:00 07/12/17 06:18 Urine Random Creatinine 68.06 Urine Random Sodium 115 H Urine Random Potassium 37.2 White Blood Count 4.2 L Red Blood Count 3.74 L Hemoglobin 12.7 L Hematocrit 36.4 L Mean Corpuscular Volume 97.3 Mean Corpuscular Hemoglobin 34.0 H Mean Corpuscular Hemoglobin Concent 34.9 Red Cell Distribution Width 13.2 Platelet Count 270 Mean Platelet Volume 9.0 Neutrophils % 59.8 Lymphocytes % 15.1 Monocytes % 17.0 H Eosinophils % 2.6 Basophils % 1.4 Nucleated Red Blood Cells % 0.0 Neutrophils # 2.5 Lymphocytes # 0.6 L Monocytes # 0.7 Eosinophils # 0.1 Basophils # 0.1 Nucleated Red Blood Cells # 0.0 Sodium Level 138 Potassium Level 4.3 Chloride Level 97 Carbon Dioxide Level 32 H Anion Gap 13 Blood Urea Nitrogen 14 Creatinine 1.47 H Glucose Level 108 Calcium Level 9.6 Phosphorus Level 4.1 Magnesium Level 2.0 Medications Current Medications Ondansetron HCl (Zofran Inj) 4 mg Q6H PRN IV NAUSEA AND/OR VOMITING; Start at 17:00 Acetaminophen (Tylenol Tab) 650 mg Q6H PRN PO PAIN LEVEL 1-3 OR FEVER; Start 07/10/17 at 17:00 Acetaminophen/ Hydrocodone Bitart ([place] (5/325)) 1 tab Q6H PRN PO PAIN LEVEL 4 -6; Start 07/10/17 at 17:00 Morphine Sulfate (morphine) 2 mg Q4H PRN IV PAIN LEVEL 7-10; Start 07/10/17 at 17:00 Bisacodyl (Dulcolax) 5 mg DAILY PRN PO CONSTIPATION; Start 07/10/17 at 17:00 Loratadine (Claritin) 10 mg DAILY PO Last administered on 07/12/17 08:36; Admin Dose 10 MG; Start 07/10/17 at 17:00 Losartan Potassium (Cozaar) 25 mg DAILY PO Last administered on 07/12/17 08: 37; Admin Dose 25 MG; Start 07/11/17 at 09:00 Tamsulosin HCl (Flomax) 0.4 mg HS PO Last administered on 07/11/17 21:07; Admin Dose 0.4 MG; Start 07/10/17 at 21:00 Lamotrigine (Lamictal) 50 mg BID PO Last administered on 07/12/17 08:38; Admin Dose 50 MG; Start 07/10/17 at 21:00 Lorazepam (Ativan) 1 mg Q6H PRN PO ANXIETY Last administered on 07/10/17 22: 29; Admin Dose 1 MG; Start 07/10/17 at 18:00 Lorazepam (Ativan) 2 mg Q10MIN PRN IV seizure; Start 07/10/17 at 17:30 Labetalol HCl (Labetalol) 10 mg Q4 PRN IV sbp >160; Start 07/10/17 at 17:30 Cevimeline HCl (Evoxac) 30 mg TID PO ; Start 07/12/17 at 12:00 Assessment/Plan Chief Complaint/Hosp Course 67 yo male hx of throat CA in remission, HTN admitted after he was eating breakfast was choking, coughing violently and fell to the ground with brief LOC eyes rolled back no tongue biting or incontinence or post ictal confusion, no convulsions. Likely vagal event, non focal exam. On Lamictal 100 mg BID continue current dose discharge planning Problems: MARVIN GRAY MD Jul 12, 2017 12:49
--- NOTE | 2017-07-12 13:44 | PN ---
Date/Time of Note Date/Time of Note DATE: 07/12/17 TIME: 13:39 Assessment/Plan VTE Prophylaxis VTE Prophylaxis Intervention: SCD's Lines/Catheters IV Catheter Type (from Nrs): Peripheral IV Assessment/Plan Assessment/Plan 1. Syncopal episode - Neurology on board and recommendations appreciated. Believe more of a vasovagal event than seizure - Patient on lamotrigine, patient states that his psychiatrist put him on for mood disorder which is possible. Continue BID - MRI noted, no acute issues - CT noted, no acute issues 2. Acute kidney injury - Very mild, still within safe ranges - US renal unremarkable - Will continue PO hydration and follow up with PCP 3. Anemia - Mild, monitor 4. Electrolyte abnormality- resolved 5. Hypertension - Continue home meds - Stable 6. Dyslipidemia -Continue meds 7. Disposition - Medically stable for discharge home Subjective 24 Hr Interval Summary Free Text/Dictation Patient doing well and no further episodes of seizures vs syncopal episodes. No new complaints and no acute overnight events. Exam/Review of Systems Vital Signs Vitals Vital Signs Date Time Temp Pulse Resp B/P Pulse Ox O2 Delivery O2 Flow Rate FiO2 07/12/17 12:04 93 07/12/17 11:50 98.3 20 126/69 96 07/10/17 16:10 Room Air Intake and Output 07/11/17 07/11/17 07/12/17 14:59 22:59 06:59 Intake Total 1100 ml 550 ml Output Total 2100 ml 1650 ml Balance -1000 ml -1100 ml Exam General: Patient is laying in bed and answers questions appropriately Mentation: Patient is alert and oriented 4, Head: Normocephalic atraumatic Eyes: EOMI, pupils reactive to light Neck: Supple, nontender, midline Respiratory: Clear to auscultation bilaterally. no wheezes or rhonchi Cardiovascular: regular rate and rhythm, no obvious murmurs Gastrointestinal: non-tender to palpation, bowel sounds heard. Neurological: Moves all extremities spontaneously Skin: No new skin lesions Results Result Diagram: 07/12/1761707/12/17617 Results 24 hrs Laboratory Tests Test 07/11/17 15:00 07/12/17 06:18 Urine Random Creatinine 68.06 Urine Random Sodium 115 H Urine Random Potassium 37.2 White Blood Count 4.2 L Red Blood Count 3.74 L Hemoglobin 12.7 L Hematocrit 36.4 L Mean Corpuscular Volume 97.3 Mean Corpuscular Hemoglobin 34.0 H Mean Corpuscular Hemoglobin Concent 34.9 Red Cell Distribution Width 13.2 Platelet Count 270 Mean Platelet Volume 9.0 Neutrophils % 59.8 Lymphocytes % 15.1 Monocytes % 17.0 H Eosinophils % 2.6 Basophils % 1.4 Nucleated Red Blood Cells % 0.0 Neutrophils # 2.5 Lymphocytes # 0.6 L Monocytes # 0.7 Eosinophils # 0.1 Basophils # 0.1 Nucleated Red Blood Cells # 0.0 Sodium Level 138 Potassium Level 4.3 Chloride Level 97 Carbon Dioxide Level 32 H Anion Gap 13 Blood Urea Nitrogen 14 Creatinine 1.47 H Glucose Level 108 Calcium Level 9.6 Phosphorus Level 4.1 Magnesium Level 2.0 Medications Medications Current Medications Ondansetron HCl (Zofran Inj) 4 mg Q6H PRN IV NAUSEA AND/OR VOMITING; Start at 17:00 Acetaminophen (Tylenol Tab) 650 mg Q6H PRN PO PAIN LEVEL 1-3 OR FEVER; Start 07/10/17 at 17:00 Acetaminophen/ Hydrocodone Bitart ([place] (5/325)) 1 tab Q6H PRN PO PAIN LEVEL 4 -6; Start 07/10/17 at 17:00 Morphine Sulfate (morphine) 2 mg Q4H PRN IV PAIN LEVEL 7-10; Start 07/10/17 at 17:00 Bisacodyl (Dulcolax) 5 mg DAILY PRN PO CONSTIPATION; Start 07/10/17 at 17:00 Loratadine (Claritin) 10 mg DAILY PO Last administered on 07/12/17 08:36; Admin Dose 10 MG; Start 07/10/17 at 17:00 Losartan Potassium (Cozaar) 25 mg DAILY PO Last administered on 07/12/17 08: 37; Admin Dose 25 MG; Start 07/11/17 at 09:00 Tamsulosin HCl (Flomax) 0.4 mg HS PO Last administered on 07/11/17 21:07; Admin Dose 0.4 MG; Start 07/10/17 at 21:00 Lamotrigine (Lamictal) 50 mg BID PO Last administered on 07/12/17 08:38; Admin Dose 50 MG; Start 07/10/17 at 21:00 Lorazepam (Ativan) 1 mg Q6H PRN PO ANXIETY Last administered on 07/10/17t 22: 29; Admin Dose 1 MG; Start 07/10/17 at 18:00 Lorazepam (Ativan) 2 mg Q10MIN PRN IV seizure; Start 07/10/17 at 17:30 Labetalol HCl (Labetalol) 10 mg Q4 PRN IV sbp >160; Start 07/10/17 at 17:30 Cevimeline HCl (Evoxac) 30 mg TID PO ; Start 07/12/17 at 12:00 MANDI MAN MD Jul 12, 2017 13:44
--- NOTE | 2017-07-12 13:52 | PDOCDIS ---
Discharge Instructions DIAGNOSIS Discharge Diagnosis 1. Syncopal episode 2. Acute kidney injury 3. Anemia 4. Electrolyte abnormality- resolved 5. Hypertension 6. Dyslipidemia CONDITION Patient Condition: Good HOME CARE INSTRUCTIONS: Diet Instructions: Low Fat /Cholesterol ACTIVITY: Activity Restrictions: No Restrictions FOLLOW UP/APPOINTMENTS Follow-up Plan 1. Follow up with Primary Care Physician in 1 week 2. Per Neurology, you most likely had a vasovagal episode. Continue same medications as previously on prior to hospitalization 3. You had a small increase in your kidney function. Keep well hydrated and follow up with repeat kidney blood test in 1 week with PCP 4. If symptoms reoccur return to ED REFERRALS Other Referrals Juliane Garcia MD Specialty: Neurology Office Address [facility] [address], [address] [place] [address] Office MANDI MAN MD Jul 12, 2017 13:52
--- NOTE | 2017-07-12 13:52 | DS ---
Date/Time of Note Date/Time of Note DATE: 07/12/17 TIME: 13:52 Discharge Summary Admission/Discharge Info Admit Date/Time Jul 11, 2017 at 11:07 Discharge Date/Time Discharge Diagnosis 1. Syncopal episode 2. Acute kidney injury 3. Anemia 4. Electrolyte abnormality- resolved 5. Hypertension 6. Dyslipidemia Patient Condition: Good Consults Neurology- Dr. Randle Procedures PROCEDURE: MR Brain without contrast. CLINICAL INDICATION: See a this morning. TECHNIQUE: An MRI of the brain was performed on a 1.5 tadeo scanner utilizing the following sequences: Sagittal T1 weighted, axial T2 weighted, axial FLAIR, coronal GRE, and axial diffusion weighted with ADC mapping. COMPARISON: CT brain 07/10/2017 and 09/26/2013 FINDINGS: No evidence of restricted diffusion to suggest acute or early subacute ischemic infarction. There is no evidence of intracranial hemorrhage, mass effect, or midline shift. No extra-axial fluid collections are seen. No hypointense signal abnormalities are seen on the GRE images to suggest the presence of blood degradation products. Mesial temporal lobes and the temporal formations are grossly symmetric and normal appearance. No evidence of cortical dysplasia or gliosis. Scattered nonspecific FLAIR/T2 signal hyperintensity foci in the subcortical and periventricular white matter compatible with sequelae of mild to moderate chronic microvascular ischemic disease. There is preservation of quintero white differentiation. No structural abnormality. Mild to moderate prominence of the ventricles and subarachnoid spaces compatible with generalized cerebral volume loss. The posterior fossa contents, brainstem, seventh - eighth cranial nerve complexes, pituitary axis, orbits, paranasal sinuses, and mastoid air cells are unremarkable. Normal flow voids are visible in the proximal intracranial arteries and dural sinuses, indicating patency. IMPRESSION: 1. No acute or early subacute ischemic infarction or intracranial hemorrhage. 2. Moderate chronic microvascular ischemic disease and generalized cerebral volume loss. 3. No structural abnormality or temporal lobe asymmetry. PROCEDURE: CT Brain without contrast. CLINICAL INDICATION: Seizure TECHNIQUE: A CT of the brain was performed on a multidetector CT scanner utilizing axial sections from the skull base through the vertex without contrast. Images were reviewed on a high-resolution PACS workstation. Exam CTDI = 44.63 mGy and the DLP = 720.23 mGy-cm. DICOM images are available. One or more of the following dose reduction techniques were used: Automated exposure control Adjustment of the mA and/or kV according to patient size. Use of iterative reconstruction technique. COMPARISON: CT head 09/26/2013 FINDINGS: Mild diffuse cerebral and cerebellar atrophy is present. There is proportionate dilatation of the ventricular system and sulci in a symmetric fashion. There is prominence of the extraaxial spaces secondary to atrophy. There is no evidence of intracranial hemorrhage, mass effect or midline shift. No abnormal intra-axial or extra-axial fluid collections are seen. The density of the brain is normal and the quintero/white matter differentiation is well preserved. Mild patchy diffuse deep white matter microangiopathic ischemic change is seen. The osseous structures are unremarkable. Paranasal sinuses are clear. Vascular calcifications are identified. IMPRESSION: 1. No intracranial hemorrhage, mass effect or midline shift. 2. Mild generalized atrophy. Mild microangiopathic ischemic change. 3. Intracranial atherosclerosis. Hx of Present Illness Patient is a 67-year-old male with a past medical history significant for throat cancer in remission, hypertension, dysrhythmia, allergies, attention deficit disorder who presents to [facility] for questionable seizure or syncopal event. Patient was eating breakfast with his who witnessed the entire event. Per patient's patient was coughing violently and then his eyes rolled back and that he had a syncopal episode to the floor, the patient was aroused by his and did not seem to have a significant postictal period. Patient states that he has no history of epilepsy and follows up with his regular doctor on a normal basis. Currently patient has no acute complaints and denies chest pain, nausea, vomiting, dizziness, weakness. PMH: Throat carcinoma in remission, hypertension, dyslipidemia, allergies, depression, ADHD, GERD, Social: Daily alcohol drinker, denies smoking Meds: Please see med rec Hospital Course Patient was admitted for further workup of syncopal episode. Neurology was consulted and CT head and MRI were negative for any acute abnormalities. patient was on lamotrigine in the past for mood disorder and continue on medication. Per Neurology, event seems more vasovagal in etiology. Patient was also found to have acute BOBBY and renal US negative for any abnormalities. Patient was instructed to keep hydrated and follow up with PCP for repeat lab studies. Patient did not have any further episodes of loss of consciousness or any witnessed seizures. Patient was stable for discharge home. Home Meds Reported Medications Lamotrigine* (Lamotrigine*) 25 Mg Tablet, 50 MG PO BID, TAB 11/25/17 Losartan Potassium* (Losartan Potassium*) 25 Mg Tablet, 25 MG PO DAILY, TAB 07/10/17 Levothyroxine Sodium* (Levothyroxine Sodium*) 112 Mcg Tablet, 112 MCG PO BEFORE BREAKFAST, #30 TAB 07/10/17 Omeprazole* (Omeprazole*) 40 Mg Capsule.dr, 40 MG PO AC BREAKFAST, #30 CAP 07/10/17 Lorazepam* (Ativan*) 2 Mg Tablet, 2 MG PO BID Y for ANXIETY, #30 TAB 07/10/17 Amphet Veb-Vvthuf-C-Amphet (Adderall) 30 Mg Tablet, 30 MG PO DAILY, TAB 07/10/17 Desvenlafaxine Succinate (Pristiq) 100 Mg Tab.sr.24h, 100 MG PO DAILY, TAB.SA 07/10/17 Simvastatin* (Zocor*) 20 Mg Tablet, 20 MG PO QHS, #30 TAB 07/10/17 Tamsulosin Hcl* (Tamsulosin Hcl*) 0.4 Mg Cap.er.24h, 0.4 MG PO HS, CAP 07/10/17 Diclofenac Sodium* (Diclofenac Sodium*) 75 Mg Tablet.dr, 75 MG PO DAILY, #60 TAB 07/10/17 Cevimeline Hcl* (Evoxac*) 30 Mg Cap, 30 MG PO TID, CAP 07/10/17 Loratadine* (Claritin*) 10 Mg Capsule, 10 MG PO DAILY, CAP 07/10/17 Discontinued Reported Medications Zaleplon (Sonata) 5 Mg Capsule, 10 09/26/13 Lorazepam* (Lorazepam*) 1 Mg Tablet 09/26/13 Hydrocodone Bit-Acetaminophen* (Wickes*) 1 Tab Tab 09/26/13 Oxycodone Hcl-Acetaminophen* (Percocet*) 1 Tab Tablet 09/26/13 Losartan Potassium* (Cozaar*) 25 Mg Tablet 09/26/13 Allopurinol* (Zyloprim*) 300 Mg Tablet 09/26/13 Zaleplon (Zaleplon) 10 Mg Capsule 09/26/13 Simvastatin (Simvastatin) 20 Mg Tablet 09/26/13 Desvenlafaxine Succinate (Pristiq) 100 Mg Tab.sr.24h 09/26/13 Amphet Mbp-Thhxxr-C-Amphet (Adderall XR) 30 Mg Cap.sr.24h 09/26/13 Follow-up Plan 1. Follow up with Primary Care Physician in 1 week 2. Per Neurology, you most likely had a vasovagal episode. Continue same medications as previously on prior to hospitalization 3. You had a small increase in your kidney function. Keep well hydrated and follow up with repeat kidney blood test in 1 week with PCP 4. If symptoms reoccur return to ED Primary Care Provider Pollo Romero Time spent on discharge: > 30 minutes Pending Labs Laboratory Tests Test 07/11/17 15:00 07/12/17 06:18 Urine Random Creatinine 68.06mg/dl (20-370) Urine Random Sodium 115mmol/L (30-90) Urine Random Potassium 37.2mmol/L (25-125) White Blood Count 4.210^3/ul (4.8-10.8) Red Blood Count 3.7410^6/ul (4.70-6.10) Hemoglobin 12.7g/dl (14.0-18.0) Hematocrit 36.4% (42.0-52.0) Mean Corpuscular Volume 97.3fl (82.0-101.0) Mean Corpuscular Hemoglobin 34.0pg (29.0-33.0) Mean Corpuscular Hemoglobin Concent 34.9g/dl (32.0-37.0) Red Cell Distribution Width 13.2% (11.5-14.5) Platelet Count 53615^3/UL (140-415) Mean Platelet Volume 9.0fl (7.4-10.4) Neutrophils % 59.8% (39.0-77.0) Lymphocytes % 15.1% (15.0-51.0) Monocytes % 17.0% (0.0-11.0) Eosinophils % 2.6% (0.0-7.0) Basophils % 1.4% (0.0-2.0) Nucleated Red Blood Cells % 0.0/100WBC (0.0-0.0) Neutrophils # 2.510^3/ul (1.6-7.5) Lymphocytes # 0.610^3/ul (0.8-2.9) Monocytes # 0.710^3/ul (0.3-0.9) Eosinophils # 0.110^3/ul (0.0-0.5) Basophils # 0.110^3/ul (0.0-0.1) Nucleated Red Blood Cells # 0.010^3/ul (0.0-0.0) Sodium Level 138mmol/L (135-144) Potassium Level 4.3mmol/L (3.5-5.1) Chloride Level 97mmol/L (97-110) Carbon Dioxide Level 32mmol/L (21-31) Anion Gap 13 (8-16) Blood Urea Nitrogen 14mg/dl (7-20) Creatinine 1.47mg/dl (0.61-1.24) Glucose Level 108mg/dl (70-220) Calcium Level 9.6mg/dl (8.4-10.2) Phosphorus Level 4.1mg/dl (2.5-4.9) Magnesium Level 2.0mg/dl (1.7-2.5) MANDI MAN MD Jul 12, 2017 13:52
--- NOTE | 2017-07-12 21:59 | RADRPT ---
Echocardiogram Report Patient Name: DUSTIN JIMÉNEZ Gender: Male Date: 1950 Study Date: 11-Jul-2017 Tripe Cooker: KASANDRA Location: I Ref. Physician: HERBERT PALM Quality: Adequate Procedures: Transthoracic echocardiogram with complete 2D, M-Mode, and Doppler examination. Indications: Syncope. 2D/M Mode Doppler Measurement Value Normal Ranges Measurement Value Normal Ranges AoR Diam MM 3.6 cm AV Peak Rian 1.3 m/sec ACS MM 2.0 cm AV Peak PG 6.5 mmHg LVIDd 2D 3.8 3.5 - 5.6 cm LVOT Peak Rian 0.9 m/sec LVIDs 2D 2.6 2.1 - 4.1 cm LVOT Peak PG 3.4 mmHg LVPWd 2D 1.1 0.6 - 1.1 cm MV E Peak Rian 0.6 m/sec IVSd 2D 1.1 0.6 - 1.1 cm MV A Peak Rian 1.1 m/sec EDV 2D 63.2 cm3 MV E/A 0.6 ESV 2D 17.8 cm3 MV Decel Time 218 msec LA Dimen 2D 4.0 2.3 - 4.0 cm MV Decel Mono 3 MV E/A 0.6 PV Peak Rian 1.0 m/sec PV Peak PG 4.0 mmHg Findings Left Ventricle: Lower limits of normal systolic function. Normal left ventricular cavity size. Normal left ventricular wall thickness. Ejection fraction is visually estimated at 50 %. Tissue Doppler/Mitral Doppler indices are consistent with impaired relaxation (Stage I diastolic dysfunction). E/E`=8. Right Ventricle: Normal right ventricular size. Normal right ventricular systolic function. Left Atrium: The left atrium is normal in size. Right Atrium: The right atrium is normal in size. Atrial Septum: Normal atrial septum. Mitral Valve: Normal appearance of the mitral valve. Trace mitral regurgitation. Aortic Valve: Normal appearance of the aortic valve. No significant aortic stenosis or insufficiency. Tricuspid Valve: Normal appearance of the tricuspid valve. There is trace tricuspid regurgitation. Pulmonic Valve: Normal pulmonic valve appearance. No evidence of pulmonic regurgitation. Pericardium: Normal pericardium with no significant pericardial effusion. No pleural effusion noted. Aorta: Normal aortic root. IVC: Normal size and normal respiratory collapse consistent with normal right atrial pressure. Pulmonary Artery: Normal pulmonary artery size. Conclusions 1.Lower limits of normal systolic function. Normal left ventricular cavity size. Normal left ventricular wall thickness. Ejection fraction is visually estimated at 50 %. Tissue Doppler/Mitral Doppler indices are consistent with impaired relaxation (Stage I diastolic dysfunction). E/E`=8. 2.Normal appearance of the mitral valve. Trace mitral regurgitation. 3.Normal appearance of the tricuspid valve. There is trace tricuspid regurgitation. Electronically Signed By: Al Cat 12-Jul-2017 21:58:16 -0800 Patient Name: DUSTIN JIMÉNEZ Study Date: 11-Jul-2017 [id number]
== END 2017-07-12 14:40 | disposition home health service (06) | DRG 312 ==
LOC: E/R 12:32 → MS4 15:24 → OBSVTOIN 07-11 11:07
PROVIDERS: ADMIT Internal Medicine; ATTEND Internal Medicine
DX: R55 Syncope and collapse (principal); N17.9 Acute kidney failure, unspecified; E87.8 Other disorders of electrolyte and fluid balance, not elsewhere classified; E78.5 Hyperlipidemia, unspecified; E03.9 Hypothyroidism, unspecified; F32.9 Major depressive disorder, single episode, unspecified; F41.9 Anxiety disorder, unspecified; F98.8 Other specified behavioral and emotional disorders with onset usually occurring in childhood and adolescence; N40.0 Benign prostatic hyperplasia without lower urinary tract symptoms; D64.9 Anemia, unspecified; K21.9 Gastro-esophageal reflux disease without esophagitis; I12.9 Hypertensive chronic kidney disease with stage 1 through stage 4 chronic kidney disease, or unspecified chronic kidney disease; N18.9 Chronic kidney disease, unspecified; Z87.891 Personal history of nicotine dependence; Z85.819 Personal history of malignant neoplasm of unspecified site of lip, oral cavity, and pharynx
CPT/HCPCS: 36415; 70450; 70551; 71010; 71020; 76775; 80048; 80053; 80061; 80306; 80307; 82436; 82550; 82962; 83735; 84100; 84133; 84155; 84300; 84439; 84443; 85025; 85610; 85730; 93306; 95819; 96374; G0378; J1953